=== PATIENT | male | born 1965 | race Caucasian/White ===

== ENCOUNTER 2022-07-24 10:44 | Day surgery (SDC) | payer MEDICAID, SELFPAY ==
[2022-06-06 10:25] VITALS: BMI 51.7
[2022-07-24 11:30] VITALS: BP 114/72; PULSE 100; RESP 18; TEMP 36.8; O2SAT 96
--- NOTE | 2022-07-24 11:53 | HO.ANESPROP2 ---
FORMERLY [facility] Past Medical History Medical History (Updated 06/06/22 @ 10:35 by Tiesha Ewing RN) Chronic back pain Fatty liver HTN (hypertension) Obesity Family History Family history of problems with anesthesia: No Surgical History History of Problems with Anesthesia: No Social History Social History Patient Tobacco Use Status: Current everyday Tobacco user Cigarettes Per Day: 7 Years Smoked: 30 Use of substances other than those prescribed or required for medical reasons: No Are you DNR?: No Advance Directives: No Advance Directives Information Provided: Yes Meds Allergies Allergy/AdvReac Type Severity Reaction Status Date / Time No Known Allergies Allergy Unverified 06/06/22 10:24 Active Medications: Current Medications Sodium Biphosphate/Sodium Phosphate (Sodium Phosphate,Callaway-Dibasic 133 Ml Enema) 133 ml FL ONCE PRN PRN Reason: Poor Colonoscopy Prep Results Home Medications Medication Instructions Recorded Confirmed Last Taken Type lisinopril 20 mg tablet 20 mg PO DAILY 06/06/22 06/06/22 Unknown History Exam Exam Date and Time: July 24, 2022 1153 Height,Weight and Vital Signs: Height 5 ft 7 in Weight 149.685 kg Last Vital Signs Temp 98.3 F 07/24/22 11:30 Pulse 100 07/24/22 11:30 Resp 18 07/24/22 11:30 BP 114/72 07/24/22 11:30 Pulse Ox 96 07/24/22 11:30 O2 Del Method 07/24/22 11:30 Airway Mallampati Class: III TM Dist: >3cm Neck ROM: Full Assessment and Plan Assessment Anesthesia Assessment: Anesthesia Plan Discussed and Chart Reviewed Final Anesthetic Review Family History of Problems with Anesthesia: No History of Problems with Anesthesia: No NPO: Yes ASA Class: III Final Preanesthetic Review: No Changes in Pt Med Stat, Meds/Allgs Chart Reviewed, Consent Obtained/Reviewed and Anes Risks/Benef Reviewed Patient Risk: Intermediate Procedure Risk: Low Anesthetic Plan Anesthetic Plan: MAC: Disposition: Standard PACU
[2022-07-24 13:13] VITALS: BP 85/52; PULSE 85; RESP 17; TEMP 36.2; O2SAT 98
--- NOTE | 2022-07-24 13:15 | P.BOP_ITS ---
Brief Operative Note Date of Service: 07/24/22 Pre-op diagnosis: Screening Post-op diagnosis: other (Colon polyps) Procedure: Colonoscopy to the cecum with hot snare polypectomies x 6 Surgeon: Abraham Palencia Anesthesia: MAC Was an Construction Site [employer] used for this Procedure?: No Estimated blood loss (mL): 0 Pathology: other (A. Polyp at 50cm B. Proximal ascending colon polyp C. Transverse colon polyp D. Polyp at 80cm E. Rectal polyps) Condition: stable Disposition: PACU
[2022-07-24 13:23] VITALS: BP 100/56
[2022-07-24 13:28] VITALS: BP 121/70; PULSE 81; RESP 20; TEMP 36.2; O2SAT 97
--- NOTE | 2022-07-24 13:33 | PC.NURSE ---
dr anne at bedside speaking to patient
[2022-07-24 13:38] VITALS: BP 122/63; PULSE 80; RESP 18; TEMP 36.2; O2SAT 97
--- NOTE | 2022-07-25 00:53 | OP_ITS ---
SURGEON: Abraham Palencia MD INDICATIONS: The patient presents for evaluation of colorectal cancer screening. Full consent has been obtained from him for this, including risks of bleeding and perforation. PREOPERATIVE DIAGNOSIS: Colorectal cancer screening. POSTOPERATIVE DIAGNOSIS: PROCEDURE PERFORMED: Colonoscopy to the cecum with hot snare polypectomy x 6. ESTIMATED BLOOD LOSS: COMPLICATIONS: ANESTHESIA: Monitored anesthesia care. ASSISTANTS: SPECIMENS: POSTOPERATIVE DIAGNOSES: Colorectal cancer screening, multiple colon polyps, diverticulosis, and internal hemorrhoids. DESCRIPTION OF PROCEDURE: The patient was placed in the left lateral decubitus position. The digital rectal exam revealed no abnormalities. The Olympus video pediatric colonoscope was entered into the rectum and advanced easily to the cecum. Once in the cecum, I did identify normal-appearing cecal pouch with appendiceal orifice and a normal-appearing ileocecal valve. The entire cecum and ileocecal valve appeared normal. The scope was slowly withdrawn assessing all mucosal surfaces carefully. Preparation was good throughout the colon although there was some thin layering of mucus and liquid stool in different parts of the colon, which had to be irrigated and suctioned away. In the proximal ascending colon, in the transverse colon, at 80 cm, at 50 cm, and in the rectum were polyps which appeared to be relatively sessile and between 5 and 12 mm in diameter. These were all removed by hot snare polypectomy and all recovered by suction. All of the polypectomy sites appeared clean, without any sign of residual polyp nor bleeding. I did not visualize any other polyps, colitis, nor angiodysplasia. There was a mild amount of sigmoid diverticulosis. In the rectum, the scope was retroflexed visualizing internal hemorrhoids, but no other pathology. The rectal mucosa appeared normal. The scope was straightened and withdrawn from the patient. He tolerated the procedure well and was returned to the recovery area in stable condition. IMPRESSION: 1. Colon polyps. 2. Diverticulosis. 3. Internal hemorrhoids. PLAN: The results of the pathology will be checked. Given these findings, and the somewhat limited prep, I would recommend a repeat colonoscopy within 2 years for further screening. He was advised not to use any aspirin or NSAIDs for 2 weeks. He was advised to make an appointment to see me for followup of his underlying liver disease. He never did the lab work or ultrasound that I ordered for him, and he has been reminded(given written instructions) to do those and reschedule the ultrasound with my office. He was advised to call me sooner as needed. He was advised to avoid alcohol. MD ISIDORO Victoria/KULWINDER / [id number] MTDD
== END 2022-07-24 14:14 | disposition home or self-care (01) ==
PROVIDERS: PCP Internal Medicine; Visit Provider Internal Medicine
PROC: 0DJD8ZZ Inspection of Lower Intestinal Tract, Via Natural or Artificial Opening Endoscopic (ICD-10-PCS; CPT 45378; principal; 2022-07-24 12:50)
DX: Z12.11 Encounter for screening for malignant neoplasm of colon (principal); D12.2 Benign neoplasm of ascending colon; D12.4 Benign neoplasm of descending colon; D12.5 Benign neoplasm of sigmoid colon; K62.1 Rectal polyp; K57.30 Diverticulosis of large intestine without perforation or abscess without bleeding; K64.8 Other hemorrhoids; K76.0 Fatty (change of) liver, not elsewhere classified; I10 Essential (primary) hypertension; Z79.899 Other long term (current) drug therapy; F17.210 Nicotine dependence, cigarettes, uncomplicated
CPT/HCPCS: 45385; 88305